=== PATIENT | female | born 1965 | race Two or more races ===

== ENCOUNTER 2021-08-07 10:45 | Inpatient (IN) | payer OTHER ==
[~2021-08-07] VITALS: Ht 167.6 cm; Wt 113.4 kg
== END 2021-08-12 11:33 | disposition home or self-care (01) | DRG 743 ==
LOC: O/R 08-09 08:40 → OB/GYN 08-09 10:45
PROVIDERS: ADMIT Specialist; ATTEND Specialist
PROC: 0UT70ZZ Resection of Bilateral Fallopian Tubes, Open Approach (ICD-10-PCS; 2021-08-09)
PROC: 0UT20ZZ Resection of Bilateral Ovaries, Open Approach (ICD-10-PCS; 2021-08-09)
PROC: 0DNW0ZZ Release Peritoneum, Open Approach (ICD-10-PCS; 2021-08-09)
PROC: 0TN70ZZ Release Left Ureter, Open Approach (ICD-10-PCS; 2021-08-09)
PROC: 0TN60ZZ Release Right Ureter, Open Approach (ICD-10-PCS; 2021-08-09)
PROC: 0UB90ZZ Excision of Uterus, Open Approach (ICD-10-PCS; 2021-08-09)
PROC: 0UT90ZZ Resection of Uterus, Open Approach (ICD-10-PCS; principal; 2021-08-09 10:45)
DX: N80.0 Endometriosis of uterus (principal); N83.291 Other ovarian cyst, right side; N83.292 Other ovarian cyst, left side; Z20.822 Contact with and (suspected) exposure to COVID-19; D25.1 Intramural leiomyoma of uterus